=== PATIENT | female | born 1980 | race Caucasian/White ===

== ENCOUNTER 2017-11-17 12:27 | Emergency (ER) | payer MEDICAID ==
[2017-11-17 13:31] LABS: BASOPHILS 0.2 % (0-2); EOSINOPHILS 1.3 % (0-7); HEMATOCRIT 40.4 % (36.0-48.0); HEMOGLOBIN 13.8 g/dL (12-16); IMMATURE GRANULOCYTES 0.2 % (0-5); LYMPHOCYTES 21.9 % (15-50); MCH 32.7 pg (26.0-34.0); MCHC 34.2 g/dL (31.0-37.0); MCV 95.7 fL (80.0-100.0); MEAN PLATELET VOLUME 9.8 fL (7.4-10.4); MONOCYTES 9.9 % (2-11); NEUTROPHILS 66.5 % (40-80); PLATELET COUNT 284 10x3/uL (130-400); RBC 4.22 10x6/uL (4.00-5.40); RDW 13.7 % (11.5-14.5); WBC 10.8 10x3/uL (4.8-10.8)
[2017-11-17 13:45] LABS: ALBUMIN 3.2 g/dL (3.4-5.0); ALKALINE PHOSPHATASE 89 U/L (46-116); ALT (SGPT) 31 U/L (10-68); BILIRUBIN - TOTAL 0.25 mg/dL (0.2-1.3); CALC OSMOLALITY 280 mosm/kg (275-300); CALCIUM 9.3 mg/dL (8.5-10.1); CARBON DIOXIDE 27.4 mmol/L (21.0-32.0); CHLORIDE - SERUM 105 mmol/L (98-107); CREATININE - SERUM 0.9 mg/dL (0.6-1.3); GLUCOSE 94 mg/dL (74-106); PROTEIN - SERUM 6.8 g/dL (6.4-8.2); SODIUM 140 mmol/L (136-145); UREA NITROGEN 19 mg/dL (7-18); eGFR NON AFRICAN AMERICAN 74 mL/min (90-120)
[2017-11-17 13:59] LABS: INR 1.03 (0.85-1.17); PROTIME 12.9 SECONDS (11.6-15.0)
[2017-11-17 14:02] LABS: CKMB 1.5 U/L (0.0-3.6); CREATINE KINASE 121 UL (21-215)
[2017-11-17 14:04] LABS: PRO BNP 9 pg/mL (0-125); TROPONIN-I < 0.017 ng/mL (0.000-0.060)
[2017-11-17 14:36] LABS: APPEARANCE CLOUDY (CLEAR); BILIRUBIN NEGATIVE (NEGATIVE); COLOR YELLOW (YELLOW); GLUCOSE NEGATIVE (NEGATIVE); KETONE NEGATIVE (NEGATIVE); NITRITE POSITIVE (NEGATIVE); PROTEIN NEGATIVE (NEGATIVE); UROBILINOGEN NORMAL (NORMAL)
[2017-11-17 14:37] LABS: BACTERIA MANY /hpf (NONE SEEN); EPITHELIAL CELLS 0-5 /hpf (0-5); RED CELLS - URINE 0-5 /hpf (0-5); WHITE CELLS - URINE 0-5 /hpf (0-5)
== END 2017-11-17 16:00 | disposition home or self-care (01) ==
LOC: D.ER 12:27
PROVIDERS: Family Medicine
DX: H10.32 Unspecified acute conjunctivitis, left eye (principal); J20.9 Acute bronchitis, unspecified; J06.9 Acute upper respiratory infection, unspecified

== ENCOUNTER 2018-01-11 13:33 | Emergency (ER) | payer MEDICAID | END 2018-01-11 16:12 | disposition home or self-care (01) | LOC: D.ER 13:33 | DX: G89.18 Other acute postprocedural pain (principal); Z90.13 Acquired absence of bilateral breasts and nipples; Z85.41 Personal history of malignant neoplasm of cervix uteri ==

== ENCOUNTER 2018-04-05 15:04 | Emergency (ER) | payer MEDICAID ==
[~2018-04-05] VITALS: Ht 162.6 cm; Wt 56.8 kg
[2018-04-05 15:13] VITALS: Ht 162.6 cm; Wt 56.8 kg
[2018-04-05] MEDS ORDERED: TAMOXIFEN CITRA20 MG PO (15:14)
[2018-04-05] MEDS ORDERED: EZFE 200200 MG PO (15:15)
[2018-04-05] MEDS ORDERED: XANAX2 MG PO (15:15)
[2018-04-05 17:35] LABS: BASOPHILS 0.2 % (0-2); EOSINOPHILS 3.8 % (0-7); HEMATOCRIT 45.1 % (36.0-48.0); HEMOGLOBIN 15.8 g/dL (12-16); IMMATURE GRANULOCYTES 0.2 % (0-5); LYMPHOCYTES 32.3 % (15-50); MEAN PLATELET VOLUME 10.2 fL (7.4-10.4); MONOCYTES 5.3 % (2-11); NEUTROPHILS 58.2 % (40-80); PLATELET COUNT 230 10x3/uL (130-400); RBC 4.65 10x6/uL (4.00-5.40); WBC 8.4 10x3/uL (4.8-10.8)
[2018-04-05 19:13] LABS: APPEARANCE HAZY (CLEAR); BILIRUBIN NEGATIVE (NEGATIVE); COLOR YELLOW (YELLOW); GLUCOSE NEGATIVE (NEGATIVE); KETONE NEGATIVE (NEGATIVE); NITRITE POSITIVE (NEGATIVE); PROTEIN NEGATIVE (NEGATIVE); SPECIFIC GRAVITY 1.015 (1.005-1.020); UROBILINOGEN NORMAL (NORMAL)
[2018-04-05 19:16] LABS: WHITE CELLS - URINE 0-5 /hpf (0-5)
[2018-04-05 19:17] LABS: EPITHELIAL CELLS 0-5 /hpf (0-5)
[2018-04-05 19:18] LABS: BACTERIA MANY /hpf (NONE SEEN)
[2018-04-05] MEDS ORDERED: MACROBID100 MG PO (20:12)
[2018-04-05 21:01] VITALS: BP 154/92
== END 2018-04-05 21:06 | disposition home or self-care (01) ==
LOC: D.ER 15:04
PROVIDERS: Family Medicine
DX: R05 Cough (principal); R50.9 Fever, unspecified; Z85.3 Personal history of malignant neoplasm of breast; N39.0 Urinary tract infection, site not specified; E11.9 Type 2 diabetes mellitus without complications

== ENCOUNTER 2018-04-28 14:17 | Emergency (ER) | payer MEDICAID ==
[~2018-04-28] VITALS: Ht 162.6 cm; Wt 61.4 kg
[~2018-04-28 14:17] MED LIST: EZFE 200200 MG PO; MACROBID100 MG PO; TAMOXIFEN CITRA20 MG PO; XANAX2 MG PO
[2018-04-28 14:43] VITALS: Ht 162.6 cm; Wt 61.4 kg
[2018-04-28 15:29] LABS: BASOPHILS 0.5 % (0-2); EOSINOPHILS 6.8 % (0-7); HEMOGLOBIN 12.9 g/dL (12-16); IMMATURE GRANULOCYTES 0.2 % (0-5); LYMPHOCYTES 26.9 % (15-50); MCH 32.7 pg (26.0-34.0); MCHC 33.9 g/dL (31.0-37.0); MCV 96.4 fL (80.0-100.0); MEAN PLATELET VOLUME 9.6 fL (7.4-10.4); MONOCYTES 8.4 % (2-11); NEUTROPHILS 57.2 % (40-80); RBC 3.94 10x6/uL (4.00-5.40); RDW 13.9 % (11.5-14.5)
[2018-04-28 15:32] LABS: PLATELET COUNT 352 10x3/uL (130-400)
[2018-04-28 16:19] LABS: ALBUMIN 3.1 g/dL (3.4-5.0); ALKALINE PHOSPHATASE 177 U/L (46-116); ALT (SGPT) 69 U/L (10-68); BILIRUBIN - TOTAL 0.18 mg/dL (0.2-1.3); CALC OSMOLALITY 282 mosm/kg (275-300); CALCIUM 8.9 mg/dL (8.5-10.1); CARBON DIOXIDE 24.7 mmol/L (21.0-32.0); CHLORIDE - SERUM 107 mmol/L (98-107); CREATININE - SERUM 0.7 mg/dL (0.6-1.3); GLUCOSE 101 mg/dL (74-106); PROTEIN - SERUM 6.4 g/dL (6.4-8.2); SODIUM 141 mmol/L (136-145); UREA NITROGEN 17 mg/dL (7-18); eGFR NON AFRICAN AMERICAN > 90 mL/min (90-120)
[2018-04-28 19:02] VITALS: BP 125/75
== END 2018-04-28 19:03 | disposition home or self-care (01) ==
LOC: D.ER 14:17
PROVIDERS: Family Medicine
DX: L76.34 Postprocedural seroma of skin and subcutaneous tissue following other procedure (principal); E11.9 Type 2 diabetes mellitus without complications; Z85.3 Personal history of malignant neoplasm of breast; Z90.13 Acquired absence of bilateral breasts and nipples

== ENCOUNTER 2018-07-26 13:17 | Emergency (ER) | payer MEDICAID ==
[~2018-07-26] VITALS: Ht 162.6 cm; Wt 53.2 kg
[2018-07-26 13:24] VITALS: BP 169/103; Ht 162.6 cm; Wt 53.2 kg
[2018-07-26] MEDS ORDERED: OMNICEF300 MG PO (13:27)
[2018-07-26] MEDS ORDERED: CLARITHROMYCIN500 M1 (13:27)
[2018-07-26] MEDS ORDERED: ZOVIRAX800 MG PO (13:28)
[2018-07-26] MEDS ORDERED: VENTOLIN HFA18 GM INH (13:29)
[2018-07-26] MEDS ORDERED: KEPPRA750 MG PO (13:29)
[2018-07-26] MEDS ORDERED: NEURONTIN800 MG PO (13:29)
[2018-07-26 14:24] LABS: BASOPHILS 0.3 % (0-2); EOSINOPHILS 3.1 % (0-7); HEMATOCRIT 40.6 % (36.0-48.0); HEMOGLOBIN 14.1 g/dL (12-16); IMMATURE GRANULOCYTES 0.3 % (0-5); LYMPHOCYTES 28.6 % (15-50); MCH 33.3 pg (26.0-34.0); MCHC 34.7 g/dL (31.0-37.0); MCV 95.8 fL (80.0-100.0); MEAN PLATELET VOLUME 9.8 fL (7.4-10.4); MONOCYTES 13.9 % (2-11); NEUTROPHILS 53.8 % (40-80); RBC 4.24 10x6/uL (4.00-5.40); RDW 14.1 % (11.5-14.5); WBC 7.2 10x3/uL (4.8-10.8)
[2018-07-26 14:39] LABS: ALBUMIN 2.9 g/dL (3.4-5.0); ALKALINE PHOSPHATASE 155 U/L (46-116); ALT (SGPT) 54 U/L (10-68); CALC OSMOLALITY 278 mosm/kg (275-300); CALCIUM 9.1 mg/dL (8.5-10.1); CARBON DIOXIDE 28.7 mmol/L (21.0-32.0); CHLORIDE - SERUM 104 mmol/L (98-107); GLUCOSE 87 mg/dL (74-106); MAGNESIUM - SERUM 1.9 mg/dL (1.8-2.4); PLATELET COUNT 236 10x3/uL (130-400); POTASSIUM - SERUM 4.4 mmol/L (3.5-5.1); PROTEIN - SERUM 6.7 g/dL (6.4-8.2); SODIUM 139 mmol/L (136-145); UREA NITROGEN 19 mg/dL (7-18); eGFR NON AFRICAN AMERICAN 65 mL/min (90-120)
[2018-07-26 14:40] LABS: BILIRUBIN - TOTAL < 0.20 mg/dL (0.2-1.3)
[2018-07-26] MEDS ORDERED: ULTRAM50 MG PO (14:47)
== END 2018-07-26 14:56 | disposition home or self-care (01) ==
LOC: D.ER 13:17
PROVIDERS: Emergency Medicine
DX: B02.9 Zoster without complications (principal); H66.92 Otitis media, unspecified, left ear; R51 Headache; E11.9 Type 2 diabetes mellitus without complications; Z85.3 Personal history of malignant neoplasm of breast; Z90.13 Acquired absence of bilateral breasts and nipples; F17.200 Nicotine dependence, unspecified, uncomplicated

== ENCOUNTER 2019-05-25 20:49 | Emergency (ER) | payer OTHER ==
[~2019-05-25] VITALS: Ht 162.6 cm; Wt 60.9 kg
[~2019-05-25 20:49] MED LIST changes: +CLARITHROMYCIN500 M1; +KEPPRA750 MG PO; +NEURONTIN800 MG PO; +OMNICEF300 MG PO; +ULTRAM50 MG PO; +VENTOLIN HFA18 GM INH; +ZOVIRAX800 MG PO
[2019-05-25 20:52] VITALS: Ht 162.6 cm; Wt 60.9 kg
[2019-05-25] MEDS ORDERED: KEFLEX500 MG PO (20:55)
[2019-05-25] MEDS ORDERED: IBUPROFEN800 MG PO (20:57)
[2019-05-25] MEDS ORDERED: PERCOCET 10-321 EAC1 PO (20:57)
[2019-05-25 21:43] LABS: BASOPHILS 0.4 % (0-2); HEMATOCRIT 39.6 % (36.0-48.0); HEMOGLOBIN 14.1 g/dL (12-16); IMMATURE GRANULOCYTES 0.1 % (0-5); LYMPHOCYTES 26.8 % (15-50); MCH 33.3 pg (26.0-34.0); MCHC 35.6 g/dL (31.0-37.0); MCV 93.6 fL (80.0-100.0); MEAN PLATELET VOLUME 9.6 fL (7.4-10.4); MONOCYTES 8.6 % (2-11); NEUTROPHILS 59.1 % (40-80); RBC 4.23 10x6/uL (4.00-5.40); RDW 14.2 % (11.5-14.5); WBC 10.2 10x3/uL (4.8-10.8)
[2019-05-25 21:47] LABS: PLATELET COUNT 308 10x3/uL (130-400)
[2019-05-25 22:01] LABS: ALBUMIN 3.2 g/dL (3.4-5.0); ALKALINE PHOSPHATASE 176 U/L (46-116); ALT (SGPT) 35 U/L (10-68); BILIRUBIN - TOTAL 0.18 mg/dL (0.2-1.3); CALC OSMOLALITY 278 mosm/kg (275-300); CALCIUM 8.7 mg/dL (8.5-10.1); CARBON DIOXIDE 26.9 mmol/L (21.0-32.0); CHLORIDE - SERUM 104 mmol/L (98-107); CREATININE - SERUM 0.8 mg/dL (0.6-1.3); GLUCOSE 89 mg/dL (74-106); POTASSIUM - SERUM 3.8 mmol/L (3.5-5.1); PROTEIN - SERUM 6.8 g/dL (6.4-8.2); SODIUM 139 mmol/L (136-145); UREA NITROGEN 19 mg/dL (7-18); eGFR NON AFRICAN AMERICAN 84 mL/min (90-120)
[2019-05-25 22:49] VITALS: BP 158/92
== END 2019-05-25 22:49 | disposition home or self-care (01) ==
LOC: D.ER 20:49
PROVIDERS: Family Medicine
DX: G89.18 Other acute postprocedural pain (principal)

== ENCOUNTER 2020-06-22 14:34 | Observation (INO) | payer OTHER ==
[~2020-06-22] VITALS: Ht 162.6 cm; Wt 72.8 kg
--- NOTE | ~2020-06-22 | EC ---
PATIENT:GRICELDA FELTON DATE OF SERVICE: 06/22/20 SEX: F MEDICAL RECORD: [id number] DATE OF : [birth year] LOCATION:D.M2 D.212 AGE OF PATIENT: 40 ADMISSION DATE: 06/22/20 REFERRING PHYSICIAN: INTERPRETING PHYSICIAN: BHAVIN WINCHESTER MD ECHOCARDIOGRAM REPORT ECHO CHARGES 4 ECHO COMPLETE Date: 06/23/20 CLINICAL DIAGNOSIS: CP ECHOCARDIOGRAPHIC MEASUREMENTS (adult normal given) AC root (d.<3.7cm) 2.8 cm LV Septum d (<1.2 cm> 0.9 cm Valve Excursion 1.6 cm LV Septum (systole) 1.6 cm Left Atria (s.<4.0cm> 3.2 cm LVPW d(<1.2cm) 0.9 cm RV (d.<2.3cm) 2.2 cm LVPW (sytole) 1.1 cm LV diastole(<5.6CM) 3.9 cm MV E-F(>70mm/sec) cm LV systole 2.4 cm LVOT Diameter 1.3 cm MV exc.(>10mm) cm Est.ejection fraction (50-75%) % DOPPLER: LVIT cm/sec A 60 cm/sec E 86 cm/sec LA cm/sec RVSP 20.0 mmHg LVOT 96 cm/sec AOP1/2T m/s Asc. 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 Upton TAPE# PACS Pericardial Effusion N DATE OF SERVICE: Adequate 2D, color flow imaging, spectral Doppler, and M-Mode. No LVH. LV internal dimensions are normal. Wall motion normal. EF greater than or equal to 55%. Aortic valve is tricuspid. No evidence of stenosis by Doppler interrogation. Left atrium is normal. Mitral valve shows no prolapse. Trace MR. Right-sided chambers are grossly normal. Trace TR. TRANSINT:[id number] Voice Confirmation ID: [id number] DOCUMENT ID: [id number] ECHOCARDIOGRAM REPORT [id number] GRICELDA FELTON BHAVIN WINCHESTER MD CC: [id number] DICTATION DATE: 06/25/20 1016 CONTRACTS ANALYST: 06/25/20 2123 DIS IN 06/24/20 [place] [id number] [place] [id number]
--- NOTE | ~2020-06-22 | HEMODYNAMI ---
PATIENT:GRICELDA FELTON MEDICAL RECORD: [id number] : 78 LOCATION:[facility] D.2122 ADMISSION DATE: 06/22/20 Generatedon:06/23/202016:23 Patient name: GRICELDA FELTON Patient #: [id number] SSN: : Date of study: 06/23/2020 Page: Of Hemodynamic Procedure Report Patient Data Patient Demographics Procedure consent was obtained First Name: GRICELDA Gender: Female Last Name: JOSE FRANCISCO : 1980 [facility] Initial: L Age: 40 year(s) Patient #: [id number] Race: Additional ID: [id number] Contact details [address]: [address] [place] [address] State: [place] City: [place] Zip code: [address] Past Medical History Allergies Allergen Reaction Date Comments Reported Other allergy 06/23/2020 SULFA, INVANZ, HYDROCODONE, IODINE, TORADOL, LEVAQUIN Admission Admission Data Admission Date: 06/22/2020 Admission Time: 16:50 Room #: D.2122 Height (in.): 64.17 BSA: 1.79 (m2) Height (cm.): 163 BMI: 27.48 (kg/m2) Weight (lbs.): 160.94 Weight (kg.): 73 Lab Results Lab Result Date: 06/23/2020 Lab Result Time: 0:00 Biochemistry Name Units Result Min Max BUN mg/dl 16 --(---*)-- 7 18 Creatinine mg/dl 0.9 --(-*--)-- 0.6 1.3 eGFR ml/min 73.28887 *-(----)-- 90 120 NONAFRICAN CBC Name Units Result Min Max Hematocrit % 42 --(*---)-- 42 54 Hemoglobin g/dl 13.9 --(*---)-- 13.5 17.5 Procedure Procedure Types Cath Procedure Diagnostic Procedure [facility] w/Coronaries Sedation Charges Moderate Sedation up to 15 minutes PCI Procedure Coronary Stent Coronary Stent Initial Hemochron ACT Test Procedure Description Procedure Date Procedure Date: 06/23/2020 Procedure Start Time: 15:55 Procedure End Time: 16:14 Procedure Staff Name Function Dann Irene MD Performing Physician More Mcnair RT Scrub Ronaldo Zhang RN Soft Sugar Supervisor Miroslava Adam RN Nurse Fara Meneses RT Monitor Indication Chest pain Procedure Data Cath Procedure Fluoroscopy Diagnostic fluoroscopy Total fluoroscopy Time: 2.7 time: 2.7 min min Diagnostic fluoroscopy Total fluoroscopy dose: 385 dose: 385 mGy mGy Contrast Material Contrast Material Type Amount (ml) Isovue 300 70 Entry Location Entry Primary Successful Side Size Upsize Upsize Entry Closure Succes sful Closure Location (Fr) 1 (Fr) 2 (Fr) Remarks Device Remarks Femoral Right 5 Fr 6 Fr Exoseal artery Short Estimated blood loss: 10 ml Diagnostic catheters Device Type Used For End Catheter Placement MULTIPACK JL 4.0 5Fr Procedure catheter MULTIPACK 3DRC 5Fr Procedure catheter MULTIPACK Pigtail 5 Fr Procedure catheter Procedure Complications No complications Procedure Medications Medication Administration Route Dosage Oxygen etCO2 Nasal cannula 2 l/min Lidocaine 2% added to field 20 Heparin Flush Bag added to field 2 bags (1000units/500ml NS) 0.9% NaCl I.V. 100 ml/hr Versed I.V. 2 mg Fentanyl I.V. 100 mcg Versed I.V. 2 mg Fentanyl I.V. 100 mcg Heparin Bolus I.V. 4000 units Integrilin (Bolus I.V. 6.8 ml 2mg/ml) Versed I.V. 2 mg Fentanyl I.V. 100 mcg Plavix P.O. 600 mg Hemodynamics Rest BSA: 1.79 (m2) HGB: 13.9 (g/dl) O2 Consumption: Estimated: 188.26 (ml/min) O2 Co nsumption indexed: Estimated:105.17 (ml/min/m) Heart Rate: 80 (bpm) Pressure Samples Time Site Value (mmHg) Purpose Heart Use Rate(bpm) 16:01 LV 110/14,19 Snapshot 78 16:01 AO 117/73(92) Pullback 76 16:01 LV 122/13,17 Pullback 76 Gradients Valve Time Site 1 Site 2 Mean SEP/DFP Peak To Heart Use (mmHg) (sec/min) Peak Rate (mmHg) (bpm) Aortic 16:01 LV AO 12 18 5 76 122/13,17 117/73(92) Calculations Valve P-P Mean Valve Index Valve Source Name Gradient Area Flow (cm2) Aortic 5 12 5 12 Snapshots Pre Cath Intra NCS Post Cath Vital Signs Time Heart Resp SPO2 etCO2 NIBP (mmHg) Rhythm Pain Sedation Rate (ipm) (%) (mmHg) Status Level (bpm) 15:30:30 74 12 97 0 116/69(102) NSR 0 (11) 10(A) , No pain 15:34:38 72 15 96 0 115/68(88) NSR 0 (11) 10(A) , No pain 15:38:44 79 18 95 0 117/69(92) NSR 0 (11) 10(A) , No pain 15:43:29 80 18 97 36.9 132/72(96) NSR 0 (11) 10(A) , No pain 15:47:38 79 17 97 35.4 126/71(91) NSR 0 (11) 10(A) , No pain 15:51:48 73 19 96 36.2 120/72(99) NSR 0 (11) 10(A) , No pain 15:55:58 71 18 96 39.8 124/66(92) NSR 0 (11) 9(A) , No pain 16:00:10 82 17 94 0 118/68(95) NSR 0 (11) 9(A) , No pain 16:04:14 85 10 92 16.2 121/79(104) NSR 0 (11) 9(A) , No pain 16:08:26 87 14 93 0 102/64(88) NSR 0 (11) 10(A) , No pain 16:12:28 89 15 94 28 115/68(104) NSR 0 (11) 10(A) , No pain Medications Time Medication Route Dose Verified Delivered Reason Notes Effectiveness by by 15:46:57 Oxygen etCO2 2 Dann [place] used for Nasal l/min St Karthikeyan Adam resident care technician cannula 15:47:04 Lidocaine 2% added 20ml Dann Quigley for local to vial [facility] anesthetic field MD ROBERTS 15:47:10 Heparin Flush added 2 Dann Quigley used for Bag to bags [facility] procedure (1000units/500ml field MD ROBERTS NS) 15:51:58 0.9% NaCl I.V. 100 Dann [place] Per physician ml/hr St Karthikeyan Adam RN, MD 15:53:20 Versed I.V. 2 mg Dann Serratoie for sedation St Karthikeyan Adam RN, MD 15:53:26 Fentanyl I.V. 100 Dann Serratoie for sedation mcg St Karthikeyan Adam RN, MD 15:56:07 Versed I.V. 2 mg Dann Serratoie for sedation St Karthikeyan Adam RN, MD 15:56:11 Fentanyl I.V. 100 Dann [place] for sedation mcg [address] Karthikeyan Adam RN, MD 16:02:30 Heparin Bolus I.V. 4000 Dann [place] for verif ied units St Karthikeyan Adam RN anticoagulation with dr MD zarco 16:05:27 Integrilin I.V. 6.8 Dann [place] for waste d (Bolus 2mg/ml) ml St Karthikeyan Adam RN antiplatelet 4.2 ml therapy of vial 16:10:36 Fentanyl I.V. 100 Dann [place] for sedation mcg [address] Karthikeyan Adam RN, MD 16:10:52 Versed I.V. 2 mg Dann [place] for sedation St Karthikeyan Adam RN, MD 16:22:07 Plavix P.O. [address] for mg St Karthikeyan Adam RN antiplatelet therapy Procedure Log Time Note 15:07:17 Informed consent obtained and on chart 15:07:58 Indication : Chest pain 15:08:18 Time tracking: Regular hours (M-F 7:00 - 5:00) 15:08:22 Procedure Status Urgent Heart Cath (IP). 15:09:08 Lab Result : BUN 16 mg/dl 15:09:08 Lab Result : Hematocrit 42 % 15:09:08 Lab Result : eGFR NONAFRICAN 73.18160 ml/min 15:09:08 Lab Result : Creatinine 0.9 mg/dl 15:09:08 Lab Result : Hemoglobin 13.9 g/dl 15:09:17 Patient Height : 64.17 inches 15:09:24 Patient Weight : 160.94 lbs 15:09:31 More JOHNSON(R) (CV) sent for patient. Start room use. 15:09:40 Plan of Care:Hemodynamics will remain stable., Cardiac rhythm will remain stable., Comfort level will be maintained., Respiratory function will remain adequate., Patient/ family verbilizes understanding of procedure., Procedure tolerated without complication., Recovers from procedure without complications.. 15:28:57 Patient received from Med II to CCL 2 Alert and oriented. Tansferred to table in Supine position. 15::58 Warm blankets applied, and levi hugger turned on for patient comfort. 15::58 Correct patient and procedure confirmed by team. 15::58 ECG and BP/O2 sat monitors applied to patient. 15::59 Full Disclosure recording started 15:: Vital chart was started 15::30 Baseline sample Acquired. 15::33 Rhythm: sinus rhythm 15::52 H&P Date Dictated: 06/22/2020 Within 30 days and on chart., H&P Addendum completed by physician on day of procedure. (MUST COMPLETE FOR ALL OUTPATIENTS). 15::53 Pre-procedure instructions explained to patient. 15::54 Pre-op teaching completed and patient verbalized understanding. 15:29:56 Family in patients room. 15::57 Patient NPO since Midnight. 15:30:31 Patient allergic to Other allergySULFA, INVANZ, HYDROCODONE, IODINE, TORADOL, LEVAQUIN 15:30:33 Is the patient allergic to Iodine/contrast media? Yes. 15:30:34 Was the patient premedicated? Yes 15:30:37 Is patient on blood thinner?No 15:30:38 Patient diabetic? Yes. 15:30:39 If diabetic: On Metformin? No 15:30:42 Previous problem with sedation/anesthesia? No ? 15:30:43 Snore? Yes 15:30:44 Sleep apnea? No 15:30:45 Deviated septum? No 15:30:47 Opens mouth fully? Yes 15:30:49 Sticks out tongue? Yes 15:30:55 Airway obstruction? No ? 15:30:57 Dentures? No ? 15:31:01 Lab results completed and on chart. 15:31:04 Right groin area was prepped with chlora-prep and draped in sterile fashion 15:31:05 Alarms reviewed by R. N. 15:31:05 Sharps counted by scrub and verified by R.N. 15:33:09 Pre procedure: right dorsailis pedis pulse 1+ Palpable, but thready & weak; easily obliterated 15:41:31 IV to lt foot non patent, IV 22 g. to rt foot placed x 1 attempt. 15:46:50 Use device set Femoral Dx 15:46:51 ACIST Syringe (43493) opened to sterile field. 15:46:51 Bag Decanter (2002S) opened to sterile field. 15:46:52 ACIST Hand Control (39906) opened to sterile field. 15:46:53 ACIST Manifold (26846) opened to sterile field. 15:46:54 Tegaderm 4 x 4 (1626W) opened to sterile field. 15:46:54 Medline Cath Pack ([id number]) opened to sterile field. 15:46:55 DIAGNOSTIC Multipack 5Fr catheter set (YR8978) opened to sterile field. 15:46:56 SHEATH 5FR Guild (DFA964) opened to sterile field. 15:46:57 Oxygen 2 l/min etCO2 Nasal cannula was administered by Miroslava Adam RN; used for procedure; Verbal order read back and verified. 15:46:57 EMERALD Guide Wire (131-462) opened to sterile field. 15:47:04 Lidocaine 2% 20ml vial added to field was administered by Dann Irene MD; for local anesthetic; Verbal order read back and verified. 15:47:10 Heparin Flush Bag (1000units/500ml NS) 2 bags added to field was administered by Dann Irene MD; used for procedure; Verbal order read back and verified. 15:51:58 0.9% NaCl 100 ml/hr I.V. was administered by Miroslava Adam RN; Per physician; Verbal order read back and verified. 15:52:06 --------ALL STOP TIME OUT------ 15:52:06 Final Timeout: patient, procedure, and site verified with staff and physician. All members of the team are in agreement. 15:52:08 Right groin site verified by team. 15:52:10 Fire Safety Assessment: A--An alcohol-based skin anteseptic being used preoperatively., C--Open oxygen or nitrous oxide is being used., D--An ESU, laser, or fiber-optic light is being used. 15:52:13 Physical assessment completed. ASA score P 2 - A patient with mild systemic disease as per Dann Irene MD. 15:52:16 2) 60-89 Mildly reduced kidney function, and other findings (as for stage 1) point to kidney disease. 15:52:19 Maximum allowable contrast dose (3.7 X eGFR X 0.75)202 ml. 15:52:22 Sedation plan: IV Moderate Sedation Medication:Versed, Fentanyl 15:53:20 Versed 2 mg I.V. was administered by Miroslava Adam RN; for sedation; Verbal order read back and verified. 15:53:26 Fentanyl 100 mcg I.V. was administered by Miroslava Adam RN; for sedation; Verbal order read back and verified. 15:55:24 Zero performed for pressure channel P1 15:55:30 Zero performed for pressure channel P1 15:55:32 Procedure started. 15:55:51 Local anesthetic to right femoral artery with Lidocaine 2% by Dann Irene MD.INITIAL ACCESS ONLY 15:56:07 Versed 2 mg I.V. was administered by Miroslava Adam RN; for sedation; Verbal order read back and verified. 15:56:11 Fentanyl 100 mcg I.V. was administered by Miroslava Adam RN; for sedation; Verbal order read back and verified. 15:56:44 A 5 Fr sheath was inserted into the Right Femoral artery 15:56:50 A MULTIPACK JL 4.0 5Fr catheter was advanced over the wire and used for Procedure. 15:57:54 LCA angiography performed. 15:58:26 Catheter removed. 15:58:32 A MULTIPACK 3DRC 5Fr catheter was advanced over the wire and used for Procedure. 16:00:01 RCA angiography performed. 16:00:03 Catheter removed. 16:00:07 A MULTIPACK Pigtail 5 Fr catheter was advanced over the wire and used for Procedure. 16:00:52 LV gram done using WALKER 16:00:54 Injector settings: Ml/sec: 10, Volume: 20, 16:01:07 LV hemodynamics recorded. 16:01:24 EF : 55 % 16:01:25 Catheter removed. 16::54 Proceeding to intervention. 16:02:15 SHEATH 6FR Guild (WWU875) opened to sterile field. 16:02:16 INFLATOR Merit BasixCompak (AT7655) opened to sterile field. 16:02:16 WHISPER 300cm guide wire ([id number]) opened to sterile field. 16:02:22 GUIDE 6FR XBLAD 3.5 catheter ([id number]) opened to sterile field. 16:02:30 Heparin Bolus 4000 units I.V. was administered by Miroslava Adam RN; for anticoagulation; verified with dr zarco Verbal order read back and verified. 16:02:37 Pre PCI Site: [place] LAD has 80% stenosis. 16:04:04 Sheath upsized to a 6 Fr Short. 16:04:15 6 Fr XBLAD 3.5 guide catheter was inserted over the wire 16:04:29 ACC Pre-intervention FORD Flow is 3. 16:05:02 WHISPER 300 wire advanced. 16:05:27 Integrilin (Bolus 2mg/ml) 6.8 ml I.V. was administered by Miroslava Adam RN; for antiplatelet therapy; wasted 4.2 ml of vial Verbal order read back and verified. 16:05:54 Wire advanced across lesion. 16:08:57 Place stent Inflation Number: 1 A SANTANA RX 3.0 x 15 stent ([id number]) was prepped and advanced across the Mid LAD . The stent was deployed at 14 ALLISON for 0:20 (min:sec) . 16:09:33 Stent catheter was removed intact over wire. 16:09:34 Wire removed. 16:09:34 Guide catheter removed. 16:09:42 EXOSEAL 6Fr (EX600) opened to sterile field. 16:10:36 Fentanyl 100 mcg I.V. was administered by Miroslava Adam RN; for sedation; Verbal order read back and verified. 16:10:52 Versed 2 mg I.V. was administered by Miroslava Adam RN; for sedation; Verbal order read back and verified. 16:10:58 Sheath removed intact; hemostasis achieved with Exoseal to the Right Femoral artery. 16:11:00 Procedure ended.(Physican Out) 16:11:55 Fluoroscopy time 02.70 minutes. 16:11:59 Fluoroscopy dose: 385 mGy 16:11:59 Flurop Dose total: 385 16:12:04 Dose Area Product 00713 mGy/cm. 16:12:08 Contrast amount:Isovue 300 70ml. 16:12:10 Maximum allowable dose exceeded? No. 16:12:11 Sharps counted by scrub and verified by R.N. 16:12:14 Post-op/insertion site Right Femoral artery dressed using a 4 x 4 and Tegaderm. 16:12:17 Post-procedure physical assessment completed. ASA score P 2 - A patient with mild systemic disease as per Dann Irene MD. 16:12:20 Post procedure rhythm: sinus rhythm 16:12:22 Estimated blood loss: 10 ml 16:12:23 Post procedure instruction explained to patient.Patient verbalizes understanding. 16:12:24 Patient needs reinforcement of post procedure teaching. 16:12:44 Procedure type changed to Cath procedure, Diagnostic procedure, LHC, [facility] w/Coronaries, Sedation Charges, Moderate Sedation up to 15 minutes, PCI procedure, Coronary Stent, Coronary Stent Initial, Hemochron ACT Test 16:14:10 Procedure and supply charges have been captured, reviewed, submitted and are correct. 16:14:34 Procedure Complication : No complications 16:14:37 Vital chart was stopped 16:14:38 [facility] Findings: MVD- PCI performed (see procedure note) 16:14:40 Operative report dictated upon procedure completion. 16:14:40 See physician's report for complete and final results. 16:14:47 Report given to [facility]. 16:14:54 Patient transfered to [facility] with Bed. 16:14:57 Procedure ended. 16:14:57 Full Disclosure recording stopped 16:15:08 ACC-PCI Only Patient was given prescriptions, or instructed by Dann Irene MD to start/continue the following medications upon discharge: Plavix 16:15:09 End room use (Document Last) 16:22:07 Plavix 600 mg P.O. was administered by Miroslava Adam RN; for antiplatelet therapy; Verbal order read back and verified. 16:22:29 ACT drawn and resulted at 156 seconds. (normal therapeutic range 180-240 seconds). 16:23:01 End room use (Document Last) 16:23:23 End room use (Document Last) Intervention Summary Intervention Notes Time ActionType Lesion and Equipment Used Action# Pressure Duration Attributes 16:08:57 Place stent Mid LAD SANTANA RX 3.0 x 1 14 00:20 15 stent ([id number]) Device Usage Item Name Manufacture Quantity Catalog Hospital Part Current [facility] Lot# / Number Charge Number Stock Stock Serial# Code ACIST Syringe Acist 1 85230 720927 845997 672331 20 (70256) Medical Systems Inc Bag Decanter Microtek 1 2002S 349266 60375 674782 5 (2001S) Medical Inc. ACIST Hand Acist 1 95190 508052 560434 004198 5 Control Medical (42092) Systems Inc ACIST Manifold Acist 1 41416 734136 545311 823201 5 (88258) Medical Systems Inc Tegaderm 4 x 4 3M 1 1626W 502563 783893 837533 5 (1626W) Medline Cath Medline 1 [id number] 454603 84774 859064 5 Pack ([id number]) DIAGNOSTIC Cardinal 1 EI0986 323836 70301 477474 30 Multipack 5Fr Health catheter set (MV0743) SHEATH 5FR Terumo 1 FCJ689 820403 750419 815996 5 Guild (FSW545) EMERALD Guide Cardinal 1 502-455 060213 188497 203737 5 Wire (502-455) Health MULTIPACK JL Cardinal 1 116633 5 4.0 5Fr Health catheter MULTIPACK 3DRC Cardinal 1 718567 5 5Fr catheter Health MULTIPACK Cardinal 1 805184 5 Pigtail 5 Fr Health catheter SHEATH 6FR Terumo 1 PUI890 335555 815847 720416 40 Guild (OPH006) INFLATOR Merit Merit 1 XX0380 601829 798063 324076 15 [facility] (VC7952) WHISPER 300cm Johnston 1 [id number] 958444 484783 177227 5 guide wire Vascular ([id number]) GUIDE 6FR Cardinal 1 [id number] 903891 683408 178963 10 XBLAD 3.5 Health catheter (11741263) SANTANA RX 3.0 x Medtronic 1 [id number] 968087 4561182 370223 5 [id number] 15 stent ([id number]) EXOSEAL 6Fr Cardinal 1 EX600 729341 300278 587381 10 (EX600) Health Signature Audit [place] Stage Time Signature Unsigned Intra-Procedure 06/23/2020 Fara Meneses 4:23:01 PM RT(R) Intra-Procedure 06/23/2020 Miroslava Adam RN 4:23:23 PM Intra-Procedure 06/23/2020 Dann Curry 4:23:54 PM Karthikeyan ROBERTS Signatures Performing Physician : Signature : Dann Maria Victoria MD Date : Time : Nurse : Buffie Adam RN Signature : Date : Time : Monitor : Fara Meneses Signature : RT Date : Time : [place] [address] [place] [address]
[~2020-06-22 14:34] MED LIST changes: +IBUPROFEN800 MG PO; +KEFLEX500 MG PO; +PERCOCET 10-321 EAC1 PO
[2020-06-22] MEDS ORDERED: EFFEXOR XR75 MG PO (14:52)
[2020-06-22] MEDS ORDERED: SEROQUEL100 MG PO (14:52)
[2020-06-22 15:15] LABS: BASOPHILS 0.1 % (0-2); EOSINOPHILS 1.6 % (0-7); HEMATOCRIT 40.7 % (36.0-48.0); IMMATURE GRANULOCYTES 0.2 % (0-5); MCH 32.7 pg (26.0-34.0); MCHC 34.4 g/dL (31.0-37.0); MCV 95.1 fL (80.0-100.0); MEAN PLATELET VOLUME 9.7 fL (7.4-10.4); NEUTROPHILS 72.1 % (40-80); PLATELET COUNT 281 10x3/uL (130-400); RBC 4.28 10x6/uL (4.00-5.40); RDW 13.9 % (11.5-14.5); WBC 10.4 10x3/uL (4.8-10.8)
[2020-06-22 16:04] LABS: CALC OSMOLALITY 272 mosm/kg (275-300); CALCIUM 9.2 mg/dL (8.5-10.1); CARBON DIOXIDE 28.2 mmol/L (21.0-32.0); CHLORIDE - SERUM 105 mmol/L (98-107); CREATININE - SERUM 0.7 mg/dL (0.6-1.3); GLUCOSE 98 mg/dL (74-106); POTASSIUM - SERUM 4.4 mmol/L (3.5-5.1); SODIUM 136 mmol/L (136-145); UREA NITROGEN 15 mg/dL (7-18); eGFR NON AFRICAN AMERICAN > 90 mL/min (90-120)
[2020-06-22 16:20] LABS: ALBUMIN 3.2 g/dL (3.4-5.0); ALKALINE PHOSPHATASE 122 U/L (30-120); ALT (SGPT) 20 U/L (10-68); BILIRUBIN - TOTAL 0.15 mg/dL (0.2-1.3); CKMB 0.4 U/L (0.0-3.6); CREATINE KINASE 57 UL (21-215); MAGNESIUM - SERUM 1.7 mg/dL (1.8-2.4); PROTEIN - SERUM 6.3 g/dL (6.4-8.2); TROPONIN-I 0.017 ng/mL (0.000-0.060)
[2020-06-22 16:27] LABS: INR 0.87 (0.85-1.17); PROTIME 11.8 SECONDS (11.6-15.0)
--- NOTE | 2020-06-22 16:27 | NUR ---
CONTINUES TO C/O FATIMA 08/06 "THAT MEDICINE DIDN'T HELP AT ALL" DR RODAS NOTIFIED
[2020-06-22 17:00] VITALS: BP 126/80
--- NOTE | 2020-06-22 19:13 | NUR ---
REPORT TO OSIEL SHORE
[2020-06-22 22:18] VITALS: BP 148/81; Ht 162.6 cm; Wt 72.8 kg
--- NOTE | 2020-06-22 22:32 | NUR ---
PATIENT IS ADMITTED. SHE COMPLAINED OF NOT GETTING SOME OF HER MEDICATIONS. I TOLD HER THAT WAS BECAUSE SHE WAS GETTING THE DILUADID AND THE DRShawn DID NOT WANT HER TO BE SNOWED.
[2020-06-22 23:20] VITALS: BP 154/95
[2020-06-22 23:44] LABS: CKMB 0.4 U/L (0.0-3.6); CREATINE KINASE 46 UL (21-215); TROPONIN-I < 0.017 ng/mL (0.000-0.060)
--- NOTE | 2020-06-23 03:13 | NUR ---
PATIENT IS NPO AT MIDNIGHT. SHE HAS RECEIVED DILUADID ONCE FOR A HEAD ACHE. HER SIGNIFICANT OTHER IS IN THE ROOM WITH HER. SHE HAS NOT HAD ANY CHEST PAIN. TROPONINS ARE NEGATIVE X 2. WE WILL CONTINUE TO MONITOR HER CARDIAC STATUS.
[2020-06-23 04:00] VITALS: BP 126/75
[2020-06-23 06:05] LABS: BASOPHILS 0.2 % (0-2); EOSINOPHILS 2.5 % (0-7); HEMOGLOBIN 13.9 g/dL (12-16); IMMATURE GRANULOCYTES 0.2 % (0-5); LYMPHOCYTES 32.9 % (15-50); MCH 32.2 pg (26.0-34.0); MCHC 33.1 g/dL (31.0-37.0); MEAN PLATELET VOLUME 9.8 fL (7.4-10.4); MONOCYTES 9.3 % (2-11); NEUTROPHILS 54.9 % (40-80); PLATELET COUNT 325 10x3/uL (130-400); RBC 4.32 10x6/uL (4.00-5.40)
[2020-06-23 06:09] LABS: MCV 97.2 fL (80.0-100.0)
[2020-06-23 06:48] LABS: CALC OSMOLALITY 279 mosm/kg (275-300); CALCIUM 8.4 mg/dL (8.5-10.1); CARBON DIOXIDE 28.7 mmol/L (21.0-32.0); CHLORIDE - SERUM 106 mmol/L (98-107); CKMB 0.5 U/L (0.0-3.6); CREATINE KINASE 49 UL (21-215); GLUCOSE 94 mg/dL (74-106); MAGNESIUM - SERUM 1.9 mg/dL (1.8-2.4); PHOSPHOROUS 4.7 mg/dL (2.5-4.9); SODIUM 140 mmol/L (136-145); TROPONIN-I < 0.017 ng/mL (0.000-0.060); UREA NITROGEN 16 mg/dL (7-18); eGFR NON AFRICAN AMERICAN 73 mL/min (90-120)
[2020-06-23 06:50] LABS: CREATININE - SERUM 0.9 mg/dL (0.6-1.3)
[2020-06-23 08:10] VITALS: BP 108/75
[2020-06-23 09:08] LABS: CHOL - HDL RATIO 3.1 ratio (2.3-4.1); LDL-HDL RATIO 1.9 ratio (1.5-3.5)
[2020-06-23 12:00] VITALS: BP 141/86
[2020-06-23 15:29] VITALS: BP 132/78
--- NOTE | 2020-06-23 16:44 | NUR ---
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 RIGHT FEMORAL SITE IS C/D/I WITH NO S/S OF HEMATOMA PRESENT. NS INFUSING @100ML/HR VIA L.FOOT PIV. NO S/S OF DISTRESS NOTED. WILL CTM.
--- NOTE | 2020-06-23 20:30 | NUR ---
PT AMBULATING IN ROOM. RIGHT GROIN DRESSING IS CLEAN,DRY AND INTACT. NO BLEEDING OR SWELLING NOTED TO RIGHT GROIN. SHE DENIES NEEDS AT THIS TIME. FAMILY MEMBER AT BEDSIDE.
[2020-06-23 21:35] VITALS: BP 122/77
[2020-06-24] VITALS: BP 143/70
[2020-06-24 04:00] VITALS: BP 125/56
[2020-06-24 06:33] LABS: BASOPHILS 0.1 % (0-2); EOSINOPHILS 0.6 % (0-7); HEMATOCRIT 39.2 % (36.0-48.0); HEMOGLOBIN 12.9 g/dL (12-16); IMMATURE GRANULOCYTES 0.2 % (0-5); LYMPHOCYTES 16.1 % (15-50); MCH 32.2 pg (26.0-34.0); MCHC 32.9 g/dL (31.0-37.0); MCV 97.8 fL (80.0-100.0); MONOCYTES 9.6 % (2-11); NEUTROPHILS 73.4 % (40-80); PLATELET COUNT 321 10x3/uL (130-400); RBC 4.01 10x6/uL (4.00-5.40)
[2020-06-24 06:57] LABS: CALC OSMOLALITY 278 mosm/kg (275-300); CARBON DIOXIDE 28.1 mmol/L (21.0-32.0); CHLORIDE - SERUM 104 mmol/L (98-107); CREATININE - SERUM 0.8 mg/dL (0.6-1.3); GLUCOSE 99 mg/dL (74-106); MAGNESIUM - SERUM 1.8 mg/dL (1.8-2.4); PHOSPHOROUS 4.3 mg/dL (2.5-4.9); POTASSIUM - SERUM 4.2 mmol/L (3.5-5.1); SODIUM 139 mmol/L (136-145); UREA NITROGEN 16 mg/dL (7-18); eGFR NON AFRICAN AMERICAN 84 mL/min (90-120)
[2020-06-24 08:00] VITALS: BP 109/53
--- NOTE | 2020-06-24 08:09 | OP ---
PATIENT NAME: GRICELDA FELTON MEDICAL RECORD: [id number] :78 LOCATION:D. D.2122 ADMISSION DATE:06/22/20 SURGEON: BHAVIN WINCHESTER MD DATE OF OPERATION: 06/23/2020 PROCEDURE: Left heart catheterization, selective coronary angiography, right femoral artery approach. CATHETERS: A 5-Cymro sheath, 5/4 left and right Tom, 5/4 pig. The procedure was well tolerated and the patient returned to the ayon. Sheath removed. ExoSeal device placed. FINDINGS: Left ventriculography in 30-degree WALKER view: Normal wall motion. Normal systolic function. CORONARY ANATOMY: LEFT MAIN: Free of disease. LAD: An 80% stenosis in mid portion. CIRCUMFLEX: Free of disease. RIGHT CORONARY ARTERY: Mild luminal irregularities, but no flow obstructive disease. IMPRESSION: Single-vessel disease involving LAD. PLAN: Intervention momentarily. DESCRIPTION OF PROCEDURE: A 5-Cymro sheath was exchanged for a 6-Cymro sheath. A JL4 guiding catheter provided excellent guide catheter support followed by 300 cm Whisper wire placed across the occluded LAD down this portion of vessel. Stent deployed was a 3.0 x 15 mm drug-eluting stent to 14 atmospheres for 45 seconds. Final angiography shows excellent resolution of 80% stenosis. No significant residual. FORD flow was 3 throughout the procedure. Heparin and Integrilin were used during the case. Sheath was closed with ExoSeal device. Plavix was loaded in the lab. NTS:[id number] Voice Confirmation ID: [id number] DOCUMENT ID: [id number] BHAVIN WINCHESTER MD at 0809 CC: [id number] DICTATION DATE: 06/23/20 1619 LABOR CONTRACTOR: 06/23/202007 ADM IN [place] [address] [place] [address]
--- NOTE | 2020-06-24 08:09 | EC ---
PATIENT:GRICELDA FELTON DATE OF SERVICE: 06/22/20 SEX: F MEDICAL RECORD: [id number] DATE OF : [birth year] LOCATION:D.M2 D.212 AGE OF PATIENT: 40 ADMISSION DATE: 06/22/20 REFERRING PHYSICIAN: INTERPRETING PHYSICIAN: BHAVIN WINCHESTER MD ECHOCARDIOGRAM REPORT ECHO CHARGES 4 ECHO COMPLETE Date: 06/23/20 CLINICAL DIAGNOSIS: CP ECHOCARDIOGRAPHIC MEASUREMENTS (adult normal given) AC root (d.<3.7cm) 2.8 cm LV Septum d (<1.2 cm> 0.9 cm Valve Excursion 1.6 cm LV Septum (systole) 1.6 cm Left Atria (s.<4.0cm> 3.2 cm LVPW d(<1.2cm) 0.9 cm RV (d.<2.3cm) 2.2 cm LVPW (sytole) 1.1 cm LV diastole(<5.6CM) 3.9 cm MV E-F(>70mm/sec) cm LV systole 2.4 cm LVOT Diameter 1.3 cm MV exc.(>10mm) cm Est.ejection fraction (50-75%) % DOPPLER: LVIT cm/sec A 60 cm/sec E 86 cm/sec LA cm/sec RVSP 20.0 mmHg LVOT 96 cm/sec AOP1/2T m/s Asc. Ao 139 cm/sec RVOT 58 cm/sec RA cm/sec PA 56 cm/sec AV Gradient Peak 7.7 mmHg AV Mean 3.6 mmHg AV Area 1.1 cm MV Gradient Peak 5.1 mmHg MV Mean 1.7 mmHg MV Area cm COMMENTS: Semi Driver: Richard [facility] As400 Programmer: 3 Dr. Upton TAPE# PACS Pericardial Effusion N DATE OF SERVICE: Adequate 2D, color flow imaging, spectral Doppler, and M-mode. No LVH. LV internal dimensions are normal. Wall motion is normal. EF is greater than or equal to 55%. Aortic valve is tricuspid. No evidence of stenosis by Doppler interrogation. Left atrium is normal. Mitral valve shows no prolapse. Trace MR. Right-sided chambers are grossly normal. Trace TR. NTS:[id number] Voice Confirmation ID: [id number] DOCUMENT ID: [id number] ECHOCARDIOGRAM REPORT [id number] GRICELDA FELTON BHAVIN WINCHESTER MD at 0809 CC: [id number] DICTATION DATE: 06/23/20 1617 WET MILLING WHEEL OPERATOR: 06/23/20 193 ADM IN [place] [id number] [place] [id number]
--- NOTE | 2020-06-24 08:09 | CN ---
PATIENT NAME:GRICELDA FELTON MEDICAL RECORD: [id number] : [birth year] LOCATION:[facility] D.2122 ADMIT DATE: 06/22/20 ACCOUNT: [id number] CONSULTING PHYSICIAN: BHAVIN WINCHESTER MD REFERRING PHYSICIAN: JAYLIN PEDRO DO DATE OF CONSULTATION: 06/23/2020 HISTORY OF PRESENT ILLNESS: A 40-year-old female with a history of coronary artery disease, historically diagnosed with angiography a few years back at outside facility with early atherosclerotic plaquing, admitted with chest pain radiating to the jaw accompanied by shortness of breath, diaphoresis occurring during sex. She has noticed more breathless as of late, strong family history of coronary artery disease, has been told her cholesterol has elevated in the past. We are asked to see her concerning her cardiovascular status. PAST MEDICAL HISTORY: Includes; 1. History of hypertension. 2. Coronary artery disease. 3. Hyperlipidemia. 4. Seizure disorder. 5. Obstructive pulmonary disease with reactive component. MEDICATIONS: Include albuterol 2 puffs every 4 hours, Xanax 2 mg t.i.d., Neurontin 800 t.i.d., Keppra 750 b.i.d., Seroquel 100 at bedtime, Effexor 75 every day. SOCIAL HISTORY: Smokes about a pack a day. No set exercise program. Has been under more stress as of late. REVIEW OF SYSTEMS: The patient reports easy bruising but reports no swollen glands. The patient reports no fever, no night sweats, no significant weight gain, no significant weight loss. No significant exercise tolerance. The patient reports no dry eyes, no irritation, no vision change. Patient reports no difficulty hearing and no ear pain. Patient reports no frequent nose bleeds or nose and sinus problems. Patient reports on arm pain on exertion. No shortness of breath while lying down. No history of heart murmur. Patient reports no cough, no wheezing or coughing up blood. Patient reports no abdominal pain, no vomiting. Normal appetite. No diarrhea and not vomiting blood. No nausea and no constipation. Patient reports no incontinence. No difficulty urinating. No hematuria. No increased frequency. Patient reports no muscle aches. No weakness, no arthralgias, no back pain. No swelling of the extremities. Patient reports no abnormal mole, no jaundice, no rashes. Reports no loss of consciousness. No weakness and no numbness. No seizures, dizziness, or headaches. The patient reports no depression, no sleep disturbance, feeling safe in a relationship and no alcohol abuse. Patient reports on fatigue. Reports no runny nose or sinus pressure. No itching, no hives, and no frequent sneezing. PHYSICAL EXAMINATION: GENERAL: Pleasant, in no acute distress, appears stated age. VITAL SIGNS: Blood pressure 108/75, pulse 75 and regular. HEENT: Normocephalic, atraumatic. NECK: No bruits noted. HEART: Regular. A II/ systolic ejection murmur. LUNGS: Fair excursion with expiratory wheezes. CONSULT REPORT [id number] GRICELDA FELTON ABDOMEN: Soft, nontender. EXTREMITIES: Pulses are well preserved, 2+ with no edema. DIAGNOSTIC DATA: EKG shows anterolateral ST-T changes. IMPRESSION: Acute coronary syndrome with ST-T segment changes. PLAN: We will plan for diagnostic angiography, intervention based on the above. TRANSINT:[id number] Voice Confirmation ID: [id number] DOCUMENT ID: [id number] BHAVIN WINCHESTER MD at 0809 CC: [id number] DICTATION DATE: 06/23/20 0831 FISHER TRAMMEL NET: 06/23/20 1126 [facility] IN [place] [id number] [place] [address]
[2020-06-24] MEDS ORDERED: PLAVIX75 MG PO (09:51)
[2020-06-24] MEDS ORDERED: BAYER CHEWABLE81 MG PO (10:41)
[2020-06-24] MEDS ORDERED: LIPITOR20 MG PO (10:41)
--- NOTE | 2020-06-24 11:42 | NUR ---
PT DISCHARGED HOME VIA WHEELCHAIR WITH FAMILY. PIV REMOVED WITH CATHETER TIP FULLY INTACT. PT SIGNED PROPER DISCHARGE INSTRUCTIONS AND REMOVED ALL VALUABLES FROM THE ROOM. TELEMETRY REMOVED AND RETURNED.
== END 2020-06-24 11:45 | disposition home or self-care (01) ==
LOC: D.ER 14:34 → OBSVTIME 16:50 → D.M2 16:50
PROVIDERS: Emergency Medicine; Internal Medicine Interventional Cardiology; ADMIT Family Medicine; ATTEND Family Medicine
DX: R07.9 Chest pain, unspecified (principal); G43.909 Migraine, unspecified, not intractable, without status migrainosus; F17.203 Nicotine dependence unspecified, with withdrawal; I10 Essential (primary) hypertension; E78.5 Hyperlipidemia, unspecified; J44.9 Chronic obstructive pulmonary disease, unspecified; F41.9 Anxiety disorder, unspecified; Z85.3 Personal history of malignant neoplasm of breast; E11.9 Type 2 diabetes mellitus without complications; I25.10 Atherosclerotic heart disease of native coronary artery without angina pectoris
CPT/HCPCS: 93458; C9600

== ENCOUNTER 2020-07-04 19:49 | Emergency (ER) | payer OTHER ==
[~2020-07-04] VITALS: Ht 162.6 cm; Wt 59.1 kg
[2020-07-04 19:49] VITALS: Ht 162.6 cm; Wt 59.1 kg
[~2020-07-04 19:49] MED LIST changes: +BAYER CHEWABLE81 MG PO; +EFFEXOR XR75 MG PO; +LIPITOR20 MG PO; +PLAVIX75 MG PO; +SEROQUEL100 MG PO
[2020-07-04 20:16] LABS: BASOPHILS 0.3 % (0-2); EOSINOPHILS 1.6 % (0-7); HEMATOCRIT 41.6 % (36.0-48.0); HEMOGLOBIN 14.1 g/dL (12-16); IMMATURE GRANULOCYTES 0.3 % (0-5); MCH 32.5 pg (26.0-34.0); MCHC 33.9 g/dL (31.0-37.0); MCV 95.9 fL (80.0-100.0); MEAN PLATELET VOLUME 9.3 fL (7.4-10.4); MONOCYTES 9.9 % (2-11); NEUTROPHILS 63.9 % (40-80); PLATELET COUNT 324 10x3/uL (130-400); RBC 4.34 10x6/uL (4.00-5.40); RDW 13.6 % (11.5-14.5)
[2020-07-04 20:27] LABS: APTT 28.6 SECONDS (22.8-39.4); PROTIME 13.1 SECONDS (11.6-15.0)
[2020-07-04 20:29] LABS: CALC OSMOLALITY 278 mosm/kg (275-300); CALCIUM 9.2 mg/dL (8.5-10.1); CARBON DIOXIDE 26.6 mmol/L (21.0-32.0); CHLORIDE - SERUM 103 mmol/L (98-107); CREATININE - SERUM 0.8 mg/dL (0.6-1.3); GLUCOSE 96 mg/dL (74-106); POTASSIUM - SERUM 3.7 mmol/L (3.5-5.1); SODIUM 139 mmol/L (136-145); UREA NITROGEN 16 mg/dL (7-18); eGFR NON AFRICAN AMERICAN 84 mL/min (90-120)
[2020-07-04 20:45] LABS: ALBUMIN 3.3 g/dL (3.4-5.0); ALKALINE PHOSPHATASE 155 U/L (30-120); ALT (SGPT) 35 U/L (10-68); BILIRUBIN - TOTAL 0.24 mg/dL (0.2-1.3); CKMB 0.6 U/L (0.0-3.6); CREATINE KINASE 58 UL (21-215); MAGNESIUM - SERUM 1.8 mg/dL (1.8-2.4); PROTEIN - SERUM 7.1 g/dL (6.4-8.2)
[2020-07-04 21:17] LABS: TROPONIN-I < 0.017 ng/mL (0.000-0.060)
[2020-07-04] MEDS ORDERED: ISOSORBIDE MONO30 M1 PO (22:03)
[2020-07-04 22:31] VITALS: BP 138/77
== END 2020-07-04 22:36 | disposition home or self-care (01) ==
LOC: D.ER 19:49
PROVIDERS: Family Medicine
DX: I25.119 Atherosclerotic heart disease of native coronary artery with unspecified angina pectoris (principal); R07.89 Other chest pain; E11.9 Type 2 diabetes mellitus without complications; I10 Essential (primary) hypertension; Z72.0 Tobacco use

== ENCOUNTER 2020-07-27 14:35 | Inpatient (IN) | payer OTHER ==
[~2020-07-27] VITALS: Ht 162.6 cm; Wt 72.7 kg
[~2020-07-27 14:35] MED LIST changes: +ISOSORBIDE MONO30 M1 PO
[2020-07-27 14:52] VITALS: Ht 162.6 cm; Wt 72.7 kg
--- NOTE | 2020-07-27 17:45 | NUR ---
POOR VENOUS ACCESS. LAB UNABLE TO OBTAIN BLOOD. DR MCNULTY NOTIFIED AND SET UP FOR EJ
[2020-07-27 17:47] LABS: BASOPHILS 0.2 % (0-2); EOSINOPHILS 1.6 % (0-7); HEMATOCRIT 43.2 % (36.0-48.0); HEMOGLOBIN 14.7 g/dL (12-16); IMMATURE GRANULOCYTES 0.4 % (0-5); LYMPHOCYTES 22.2 % (15-50); MCH 32.7 pg (26.0-34.0); MEAN PLATELET VOLUME 9.2 fL (7.4-10.4); MONOCYTES 7.6 % (2-11); PLATELET COUNT 291 10x3/uL (130-400); RDW 13.8 % (11.5-14.5); WBC 8.5 10x3/uL (4.8-10.8)
[2020-07-27 17:57] LABS: APTT 28.1 SECONDS (22.8-39.4); INR 0.91 (0.85-1.17); PROTIME 12.2 SECONDS (11.6-15.0)
[2020-07-27 18:00] VITALS: BP 139/80
[2020-07-27 18:04] LABS: CALC OSMOLALITY 272 mosm/kg (275-300); CALCIUM 9.1 mg/dL (8.5-10.1); CARBON DIOXIDE 25.9 mmol/L (21.0-32.0); CHLORIDE - SERUM 103 mmol/L (98-107); CREATININE - SERUM 0.9 mg/dL (0.6-1.3); GLUCOSE 94 mg/dL (74-106); POTASSIUM - SERUM 4.3 mmol/L (3.5-5.1); SODIUM 136 mmol/L (136-145); UREA NITROGEN 15 mg/dL (7-18); eGFR NON AFRICAN AMERICAN 73 mL/min (90-120)
[2020-07-27 18:21] LABS: ALBUMIN 3.6 g/dL (3.4-5.0); ALKALINE PHOSPHATASE 128 U/L (30-120); ALT (SGPT) 24 U/L (10-68); BILIRUBIN - TOTAL 0.27 mg/dL (0.2-1.3); CKMB 0.4 U/L (0.0-3.6); CREATINE KINASE 54 UL (21-215); MAGNESIUM - SERUM 1.8 mg/dL (1.8-2.4); PROTEIN - SERUM 7.1 g/dL (6.4-8.2); TROPONIN-I < 0.017 ng/mL (0.000-0.060)
--- NOTE | 2020-07-27 19:00 | NUR ---
REPORT TO OSIEL MOCTEZUMA.
[2020-07-27 20:00] VITALS: BP 151/79
[2020-07-27 22:00] VITALS: BP 143/82
[2020-07-28 00:01] VITALS: BP 128/66
[2020-07-28 01:04] LABS: CKMB 0.3 U/L (0.0-3.6); CREATINE KINASE 54 UL (21-215)
[2020-07-28 01:05] LABS: TROPONIN-I < 0.017 ng/mL (0.000-0.060)
--- NOTE | 2020-07-28 01:41 | NUR ---
COVID SWAB DONE AND TAKEN TO LAB
--- NOTE | 2020-07-28 03:38 | NUR ---
PT RESTING QUIETLY. CL IN REACH. DENIES NEEDS AT THIS TIME. BED IN LOW SIDE RAILS X1. RESP EVEN AND UNLABORED. WCTM
[2020-07-28 08:34] LABS: BASOPHILS 0.1 % (0-2); EOSINOPHILS 0.1 % (0-7); HEMATOCRIT 44.1 % (36.0-48.0); HEMOGLOBIN 14.8 g/dL (12-16); IMMATURE GRANULOCYTES 0.3 % (0-5); MCH 32.3 pg (26.0-34.0); MCHC 33.6 g/dL (31.0-37.0); MCV 96.3 fL (80.0-100.0); MEAN PLATELET VOLUME 9.4 fL (7.4-10.4); MONOCYTES 5.4 % (2-11); NEUTROPHILS 86.1 % (40-80); PLATELET COUNT 272 10x3/uL (130-400); RBC 4.58 10x6/uL (4.00-5.40); RDW 13.8 % (11.5-14.5)
[2020-07-28 08:35] LABS: WBC 14.6 10x3/uL (4.8-10.8)
[2020-07-28 08:59] LABS: ALBUMIN 3.4 g/dL (3.4-5.0); ALKALINE PHOSPHATASE 120 U/L (30-120); ALT (SGPT) 27 U/L (10-68); BILIRUBIN - TOTAL 0.23 mg/dL (0.2-1.3); CALC OSMOLALITY 271 mosm/kg (275-300); CALCIUM 9.2 mg/dL (8.5-10.1); CARBON DIOXIDE 25.2 mmol/L (21.0-32.0); CHLORIDE - SERUM 102 mmol/L (98-107); CKMB 0.3 U/L (0.0-3.6); CREATINE KINASE 45 UL (21-215); CREATININE - SERUM 0.7 mg/dL (0.6-1.3); GLUCOSE 95 mg/dL (74-106); MAGNESIUM - SERUM 1.9 mg/dL (1.8-2.4); PHOSPHOROUS 3.9 mg/dL (2.5-4.9); POTASSIUM - SERUM 4.4 mmol/L (3.5-5.1); PROTEIN - SERUM 7.4 g/dL (6.4-8.2); SODIUM 135 mmol/L (136-145); THYROID STIMULATING HORMONE 0.42 uIU/mL (0.36-3.74); UREA NITROGEN 17 mg/dL (7-18); eGFR NON AFRICAN AMERICAN > 90 mL/min (90-120)
[2020-07-28 09:00] LABS: TROPONIN-I < 0.017 ng/mL (0.000-0.060)
--- NOTE | 2020-07-28 11:09 | NUR ---
PT TRYING TO LEAVE DEPT WITH IV IN FOOT AND NECK. ASKED TO GO BACK TO ROOM. DISCUSSED PT ADMIT STATUS AND SHE WANTS TO LEAVE REGARDLESS OF MD DISCUSSION. NOTIFIED DR SCHAEFER OF AMA AND REMOVED BOTH IVS WITH CATH INTACT. PT REFUSED TO SIGN AMA FORM, VERBALLY DISCUSSED RISKS UP TO INCLUDING . PT LEFT ER WITHOUT SIGNING
--- NOTE | 2020-07-29 09:08 | EC ---
PATIENT:GRICELDA FELTON DATE OF SERVICE: 07/27/20 SEX: F MEDICAL RECORD: [id number] DATE OF : [birth year] LOCATION:[place] [address] AGE OF PATIENT: 40 ADMISSION DATE: 07/27/20 REFERRING PHYSICIAN: INTERPRETING PHYSICIAN: BHAVIN WINCHESTER MD ECHOCARDIOGRAM REPORT ECHO CHARGES 5 ECHO LIMITED Date: 07/28/20 CLINICAL DIAGNOSIS: STROKELIKE SYMPTOMS ECHOCARDIOGRAPHIC MEASUREMENTS (adult normal given) AC root (d.<3.7cm) 0 cm LV Septum d (<1.2 cm> 0 cm Valve Excursion 0 cm LV Septum (systole) 0 cm Left Atria (s.<4.0cm> 0 cm LVPW d(<1.2cm) 0 cm RV (d.<2.3cm) 0 cm LVPW (sytole) 0 cm LV diastole(<5.6CM) 0 cm MV E-F(>70mm/sec) 0 cm LV systole 0 cm LVOT Diameter 0 cm MV exc.(>10mm) 0 cm Est.ejection fraction (50-75%) % DOPPLER: LVIT cm/sec A 0 cm/sec E 0 cm/sec LA 0 cm/sec RVSP 17 mmHg LVOT 0 cm/sec AOP1/2T m/s Asc. Ao 0 cm/sec RVOT 0 cm/sec RA 0 cm/sec PA 0 cm/sec AV Gradient Peak 0 mmHg AV Mean 0 mmHg AV Area 0 cm MV Gradient Peak 0 mmHg MV Mean mmHg MV Area cm COMMENTS: Surface Plate Inspector: Richard [facility] Cartridge Gauger: 3 Dr. Upton TAPE# PACS Pericardial Effusion N DATE OF SERVICE: 07/28/2020 This is a limited study. Grossly no LVH. LV internal dimensions are normal. Wall motion normal. EF greater than or equal to 55%. Aortic valve is tricuspid with good valve excursion. No significant AI. Left atrium appears normal. Mitral valve grossly appears normal. Trivial MR. Right-sided chambers are grossly normal. Trivial TR. TRANSINT:[id number] Voice Confirmation ID: [id number] DOCUMENT ID: [id number] ECHOCARDIOGRAM REPORT [id number] GRICELDA FELTON BHAVIN WINCHESTER MD at 0908 CC: [id number] DICTATION DATE: 07/28/20 8074 SENIOR SUSTAINABILITY CONSULTANT: 10/02/20 0010 DIS IN 07/28/20 [facility] [address] [place] [address]
== END 2020-07-28 15:20 | disposition left against medical advice (07) | DRG 69 ==
LOC: D.ER 14:35 → D.EDHOLD 17:30
PROVIDERS: Family Medicine; ADMIT Family Medicine Adult Medicine; ATTEND Family Medicine Adult Medicine
DX: G45.9 Transient cerebral ischemic attack, unspecified (principal); F17.203 Nicotine dependence unspecified, with withdrawal; I25.10 Atherosclerotic heart disease of native coronary artery without angina pectoris; I10 Essential (primary) hypertension; E78.5 Hyperlipidemia, unspecified; E11.9 Type 2 diabetes mellitus without complications; J44.9 Chronic obstructive pulmonary disease, unspecified; F41.9 Anxiety disorder, unspecified; Z85.3 Personal history of malignant neoplasm of breast

== ENCOUNTER 2021-03-01 10:34 | Emergency (ER) | payer OTHER ==
[~2021-03-01] VITALS: Ht 162.6 cm; Wt 81.8 kg
[~2021-03-01 10:34] MED LIST changes: +BUTALB-APAP-CA1 EACH PO; +SOMA350 MG PO
[2021-03-01 10:37] VITALS: BP 120/63; Ht 162.6 cm; Wt 81.8 kg
[2021-03-01 12:02] LABS: CALC OSMOLALITY 276 mosm/kg (275-300); CALCIUM 9.2 mg/dL (8.5-10.1); CARBON DIOXIDE 25.4 mmol/L (21.0-32.0); CHLORIDE - SERUM 103 mmol/L (98-107); CREATININE - SERUM 0.8 mg/dL (0.6-1.3); GLUCOSE 110 mg/dL (74-106); POTASSIUM - SERUM 3.8 mmol/L (3.5-5.1); SODIUM 138 mmol/L (136-145); UREA NITROGEN 13 mg/dL (7-18); eGFR NON AFRICAN AMERICAN 84 mL/min (90-120)
[2021-03-01 12:03] LABS: BASOPHILS 0.3 % (0-2); EOSINOPHILS 2.3 % (0-7); HEMATOCRIT 41.6 % (36.0-48.0); IMMATURE GRANULOCYTES 0.3 % (0-5); LYMPHOCYTE ABS# 1.41 10x3/uL (1.18-3.74); LYMPHOCYTES 17.8 % (15-50); MCH 32.1 pg (26.0-34.0); MCHC 33.7 g/dL (31.0-37.0); MCV 95.4 fL (80.0-100.0); MEAN PLATELET VOLUME 10.2 fL (7.4-10.4); MONOCYTES 10.7 % (2-11); NEUTROPHIL ABS# 5.43 10x3/uL (1.56-6.13); NEUTROPHILS 68.6 % (40-80); PLATELET COUNT 293 10x3/uL (130-400); RBC 4.36 10x6/uL (4.00-5.40); RDW 14.1 % (11.5-14.5); WBC 7.9 10x3/uL (4.8-10.8)
[2021-03-01 12:08] LABS: ALBUMIN 3.2 g/dL (3.4-5.0); ALKALINE PHOSPHATASE 158 U/L (30-120); ALT (SGPT) 45 U/L (10-68); BILIRUBIN - TOTAL 0.12 mg/dL (0.2-1.3); PROTEIN - SERUM 7.2 g/dL (6.4-8.2); TROPONIN-I < 0.017 ng/mL (0.000-0.060)
[2021-03-01] MEDS ORDERED: ZITHROMAX250 MG PO (12:15)
[2021-03-01] MEDS ORDERED: PREDNISONE20 MG PO (12:15)
== END 2021-03-01 12:41 | disposition home or self-care (01) ==
LOC: D.ER 10:34
PROVIDERS: Emergency Medicine
DX: J18.9 Pneumonia, unspecified organism (principal); E11.9 Type 2 diabetes mellitus without complications; I10 Essential (primary) hypertension; E78.5 Hyperlipidemia, unspecified; Z72.0 Tobacco use

== ENCOUNTER → 2021-03-03 09:30 | Outpatient (CLI) | payer OTHER ==
[2021-03-01 10:37] VITALS: BMI 30.9
[~2021-03-03 09:30] MED LIST changes: +PREDNISONE20 MG PO; +ZITHROMAX250 MG PO
== END | disposition home or self-care (01) ==
LOC: D.CT 09:30
PROVIDERS: ATTEND Internal Medicine Pulmonary Disease
DX: R91.8 Other nonspecific abnormal finding of lung field (principal)